=== PATIENT | male | born 1995 | race Two or more races ===

== ENCOUNTER 2017-08-28 17:33 | Emergency (ER) | payer SELFPAY ==
[2017-08-28] MEDS ORDERED: KETOROLAC 30 MG/1 ML SDV IVP ONE (18:29)
[2017-08-28] MEDS ORDERED: DEXAMETHASONE 10 MG/ML VIAL IVP ONE (18:29)
[2017-08-28 19:20] VITALS: BP 128/77
[2017-08-28] MEDS ORDERED: AMOXICILLIN/CLAVULANATE POT 875/125 MG TAB PO ONE (19:24)
--- NOTE | 2017-08-28 19:26 | EDPHY ---
H & P Stated Complaint: ST/FEVER Time Seen by Provider: 08/28/17 17:45 HPI/ROS: Chief complaint: Sore throat History of present illness: This is a 21-year-old male who presents to the emergency department for a sore throat. He reports the onset of symptoms approximately a day ago. In addition his throat feels swollen and he has had fevers. He denies precipitating factors. He denies alleviating factors. He denies other associated signs or symptoms including no cough, no chest congestion, no trouble breathing, no rash. Review of systems: A 10 point review of systems was obtained and other than described above was negative - Personal History Current Tetanus Diphtheria and Acellular Pertussis (TDAP): No - Medical/Surgical History Hx Asthma: No Hx Chronic Respiratory Disease: No Hx Diabetes: No Hx Cardiac Disease: No Hx Renal Disease: No Hx Cirrhosis: No Hx Alcoholism: No Hx HIV/AIDS: No Hx Splenectomy or Spleen Trauma: No Other PMH: DENIES - Physical Exam Exam: General Appearance: Alert and no distress. Eyes: Pupils equal and round no injection. ENT: Tympanic membranes, external auditory canals, external ears and surrounding soft tissue including over the mastoids are unremarkable. Nasopharynx is not injected. There is no rhinorrhea. Oropharynx is injected. There is significant bilateral, symmetrical tonsillar hypertrophy with exudate. There is no asymmetry. The uvula is midline. No elevation of the tongue. There is no hoarseness, no drooling, no trismus, no stridor. Respiratory: Chest is non tender, lungs are clear to auscultation. Cardiac: regular rate and rhythm Musculoskeletal: Neck is supple and non tender. Extremities have full range of motion and are non tender. Skin: No rashes or lesions. Neurological: Alert and oriented x4. No meningismus. Constitutional: Initial Vital Signs Temperature (C) 38.9 C H 08/28/17 17:39 Heart Rate 120 H 08/28/17 17:39 Respiratory Rate 18 08/28/17 17:39 Blood Pressure 140/91 H 08/28/17 17:39 O2 Sat (%) 94 08/28/17 17:39 O2 Delivery Mode Room Air Allergies/Adverse Reactions: No Known Allergies Allergy (Unverified 08/28/17 17:38) Home Medications: Medication Instructions Recorded Amoxicillin/Clavulanate Pot 875 mg PO BID #20 tab 08/28/17 [Augmentin 875 MG TAB (*)] Dexamethasone [Decadron 4 MG (*)] 4 mg PO ONCE #1 tab 08/28/17 Medical Decision Making ED Course/Re-evaluation: Patient seen under the supervision of my secondary supervising physician Dr. Adam Goins. Patient presents to the emergency department with fever, sore and swollen throat. He appears to have a significant tonsillitis. Strep swab and mono screen are negative. No asymmetry, hoarseness, drooling, trismus or stridor to suggest abscess formation, no meningeal signs. He is IV hydrated. He is given Toradol and Decadron for symptomatic care. He is started on Augmentin. Home care is discussed. He is referred to ENT for recheck. Strict return precautions are given. Patient voiced understanding and agreement with plan. Differential Diagnosis: Included but not limited to pharyngitis, tonsillitis, unlikely abscess formation or meningitis - Data Points Laboratory Results: 08/28/17 08/28/17 08/28/17 Unknown 18:40 17:42 Monoscreen NEGATIVE (NEGATIVE) Group A Strep Screen NEGATIVE (NEGATIVE) Group A Strep DNA Pending Medications Given: Discontinued Medications Amoxicillin/Clavulanate Potassium (Augmentin 875mg) 875 mg PO EDNOW ONE PRN Reason: Protocol Stop: 08/28/17 19:25 Last Admin: 08/28/17 19:54 Dose: 875 mg Dexamethasone (Decadron Injection) 10 mg IVP EDNOW ONE Stop: 08/28/17 18:30 Last Admin: 08/28/17 18:35 Dose: 10 mg Ketorolac Tromethamine (Toradol) 30 mg IVP EDNOW ONE Stop: 08/28/17 18:30 Last Admin: 08/28/17 18:35 Dose: 30 mg Departure - Departure Disposition: Home, Routine, Self-Care Clinical Impression: Acute bacterial tonsillitis Condition: Good Instructions: Tonsillitis (ED) Additional Instructions: Please follow-up with the primary care doctor or ears Nose and Throat doctor on Thursday for recheck Take antibiotics as prescribed until finished even iffeeling better, I recommend you also take a probiotic with the antibiotic Use ibuprofen 800 mg 3 times a day for the next 2-3 days for pain control Take year Decadron steroid tomorrow night, you only have a single dose to take If symptoms worsen or new symptoms develop return to the emergency room for recheck Referrals: NONE *PRIMARY CARE P,. [Primary Care Provider] - As per Instructions Prescriptions: Amoxicillin/Clavulanate Pot [Augmentin 875 MG TAB (*)] 875 mg PO BID #20 tab Dexamethasone [Decadron 4 MG (*)] 4 mg PO ONCE #1 tab
== END 2017-08-28 20:12 | disposition home or self-care (01) ==
DX: J03.90 Acute tonsillitis, unspecified (principal)
CPT/HCPCS: 96374; J1100; J1885